=== PATIENT | male | born 1985 | race Two or more races ===

== ENCOUNTER 2022-03-15 07:20 | Day surgery (SDC) | payer BC ==
[2022-03-11 12:55] LABS: Urine WBC None Seen /hpf (0 - 3)
[2022-03-11 12:57] LABS: Basophils # (auto) 0 10 ^3/uL (0-0.2); Basophils % (auto) 0.1 % (0.0-2.0); Eosinophils # (auto) 0 10 ^3/uL (0-0.8); Eosinophils % (auto) 0.6 % (0.0-7.0); Hematocrit 43.8 % (41.0-53.0); Hemoglobin 15.3 g/dL (13.5-17.5); Lymphocytes # (auto) 2.4 10 ^3/uL (0.4-5.4); Lymphocytes % (auto) 32.2 % (10.0-50.0); Mean Corpuscular Hemoglobin 31.1 pg (28.0-32.0); Mean Corpuscular Volume 88.9 fL (80.0-100.0); Monocytes # (auto) 0.4 10 ^3/uL (0-1.3); Monocytes % (auto) 5.6 % (0.0-12.0); Neutrophils # (auto) 4.5 10 ^3/uL (1.6-8.6); Neutrophils % (auto) 61.5 % (37.0-80.0); Nucleated Red Blood Cells % 0.1 %; Red Blood Cells 4.93 10^6/uL (4.5-5.90); Red Cell Distribution Width 12.4 % (11.8-14.3); White Blood Cell 7.3 10^3/uL (4.4-10.8)
[2022-03-11 13:03] LABS: Urine Bacteria NONE SEEN /hpf (None Seen); Urine Blood Negative /uL (Negative)
[2022-03-11 13:16] LABS: INR 1.06 (0.9-1.15); Partial Thromboplastin Time 29.7 sec (23.6-33.0)
[2022-03-11 14:03] LABS: Albumin 4.3 g/dL (3.4-5.0); Calcium 9.3 mg/dL (8.5-10.1); Potassium 4.1 mmol/L (3.5-5.1)
[2022-03-11 14:08] LABS: BUN/Creatinine Ratio 11.5; Bilirubin, Total 0.5 mg/dL (0.2-1.0); Total Protein 8.4 g/dL (6.4-8.2)
[~2022-03-15] VITALS: Ht 175.3 cm; Wt 90.7 kg
[~2022-03-15 07:20] MED LIST: HYDR1CAP27 PO; RISP2TAB62 PO
[2022-03-15] MEDS ORDERED: SUCCINYLCHOLINE CHLORIDE 20 MG/ML 10ML VIAL IV ONE (07:21)
[2022-03-15] MEDS ORDERED: ceFAZolin 1GM/50ML 100 ML IV ONE (07:53)
[2022-03-15] MEDS ORDERED: ROCURONIUM 10MG/ML 10ML VIAL IV ONE (08:26)
[2022-03-15] MEDS ORDERED: MIDAZOLAM HCL 2MG/2ML 2ml VIAL (1mg/ml) ONE (08:26)
[2022-03-15] MEDS ORDERED: SODIUM CHLORIDE LOCK 10 ML ONE (08:26)
[2022-03-15] MEDS ORDERED: MEPERIDINE HCL (25 MG/ML) 1ML VIAL ONE (08:26)
[2022-03-15] MEDS ORDERED: PROPOFOL 10 MG/ML 20 ML IV ONE (08:26)
[2022-03-15] MEDS ORDERED: fentaNYL CITRATE 5 ML ONE (08:26)
[2022-03-15] MEDS ORDERED: ONDANSETRON HCL 4 MG/2 ML VIAL ONE (08:26)
[2022-03-15] MEDS ORDERED: fentaNYL CITRATE 100 MCG/2 ML VL ONE (08:26)
[2022-03-15] MEDS ORDERED: BUPIVACAINE HCL 50 ML ONE (10:58)
[2022-03-15] MEDS ORDERED: MORPHINE SULFATE 4 MG/ML SYR/VIAL IV PRN (11:30)
[2022-03-15] MEDS ORDERED: KETOROLAC TROMETH 30 MG/ML 1ML VIAL IV ONE (11:30)
[2022-03-15] MEDS ORDERED: METOCLOPRAMIDE HCL 5MG/ml INJ 2ml VIAL IV PRN (11:30)
[2022-03-15] MEDS ORDERED: EPINEPHrine HCL 1 MG/1 ML AMP ONE (11:34)
[2022-03-15] MEDS: HYDROmorphone HCL 2 MG/ML VL/or syr IV PRN ×2 (13:48→15:38)
[2022-03-15] MEDS ORDERED: ASPI-498 OR (15:05)
[2022-03-15] MEDS ORDERED: HYDR1TAB97 PO (15:05)
[2022-03-15] MEDS ORDERED: HYDROmorphone HCL 2 MG/ML VL/or syr ONE (15:37)
[2022-03-15 15:45] VITALS: BP 129/87
== END 2022-03-15 16:15 | disposition home or self-care (01) ==
LOC: SUR 07:20
PROVIDERS: ATTEND Orthopaedic Surgery Sports Medicine
DX: S83.511A Sprain of anterior cruciate ligament of right knee, initial encounter (principal); S83.281A Other tear of lateral meniscus, current injury, right knee, initial encounter; M94.261 Chondromalacia, right knee; F41.9 Anxiety disorder, unspecified; F32.A Depression, unspecified; Z20.822 Contact with and (suspected) exposure to COVID-19; X58.XXXA Exposure to other specified factors, initial encounter; Y93.89 Activity, other specified; Y92.89 Other specified places as the place of occurrence of the external cause; Y99.8 Other external cause status
CPT/HCPCS: 29888; 36415; 73560; 76000; 80053; 81001; 85025; 85610; 85730; C1713; J0171; J0330; J0690; J1170; J1885; J2175; J2250; J2405; J2704; J3010; J3490; U0003